=== PATIENT | male | born 1970 | race Caucasian/White ===

== ENCOUNTER 2022-01-16 08:28 | Outpatient (CLI) | payer BC, SELFPAY ==
[2022-01-16 09:14] LABS: Cholesterol 196 mg/dL (0-200); HDL Direct 38 mg/dL (40-60); LDL Cholesterol Calculated 150 mg/dL (<130); Triglycerides 41 mg/dL (0-150)
== END 2022-01-16 08:29 | disposition home or self-care (01) ==
LOC: CHSLAB 08:31
PROVIDERS: PCP Nurse Practitioner Family; Visit Provider Nurse Practitioner Family
DX: Z00.00 Encounter for general adult medical examination without abnormal findings (principal)
CPT/HCPCS: 36415; 80061

== ENCOUNTER 2025-05-07 09:58 | Outpatient (CLI) | payer BC, SELFPAY ==
--- NOTE | ~2025-05-07 | XR_ITS ---
EXAMINATION: XR foot LT 2V, 05/07/2025 10:20 CDT HISTORY: M79.662 - Pain in left lower leg COMPARISON: No comparisons available. Findings: No acute fracture or malalignment. No significant degenerative changes. Soft tissues unremarkable. Impression: No acute fracture or malalignment. Reviewed, dictated and finalized at location P. Impression: No acute fracture or malalignment.
--- NOTE | ~2025-05-07 | XR_ITS ---
EXAMINATION: XR heel LT min 2V, 05/07/2025 10:20 CDT HISTORY: M79.662 - Pain in left lower leg COMPARISON: No comparisons available. Findings: No acute fracture or malalignment. No significant degenerative changes. Soft tissues unremarkable. Impression: No acute fracture or malalignment. Reviewed, dictated and finalized at location P. Impression: No acute fracture or malalignment.
[2025-05-07 10:14] LABS: Hematocrit 49.2 % (40.0-54.0); Hemoglobin 16.2 g/dL (14.0-18.0); Immature Granulocyte Percent A 0.2 % (0.0-0.0); Lymphocytes Absolute Auto 1.30 K/mm3 (1.10-4.50); Mean Corpuscular HGB Conc 32.9 g/dL (32-36); Mean Corpuscular Hemoglobin 33.2 pg (27.0-31.0); Mean Corpuscular Volume 100.8 fL (78.0-102.0); Nucleated Red Blood Cells Absolute Auto 0.00 K/mm3 (0.00-0.00); Nucleated Red Blood Cells Perc 0.0 % (0-0.0); Platelet Count Result 266 K/mm3 (150-420); Red Blood Count 4.88 M/mm3 (4.70-6.10); White Blood Count 9.1 K/mm3 (4.8-10.8)
--- NOTE | 2025-05-07 10:14 | ECG_ITS ---
Test Date: 2025-05-07 11:10:09 Measurements Intervals [place] Rate: 70 P: 54 [place]: 132 QRS: 79 QRSD: 98 T: -18 QT: 380 QTc: 410 Interpretive Statements SINUS RHYTHM VOLTAGE CRITERIA FOR LVH MINIMAL Q WAVES- INF/LAT LEADS ST-T WAVE ABNORMALITY IN INFERIOR LEADS- CONSIDER ISCHEMIA ABNORMAL ECG No previous ECG available for comparison Electronically Signed On 05-07-2025 11:15:36 CDT by Santana Antonio D.O.
[2025-05-07 10:26] LABS: Hemoglobin A1C 5.5 % (<5.7)
[2025-05-07 10:31] LABS: INR 1.0; Prothrombin Time 10.6 Seconds (9.50-12.1)
[2025-05-07 10:32] LABS: Alanine Aminotransferase 13 U/L (6-50); Albumin Level 4.8 g/dL (3.5-5.1); Alkaline Phosphatase 55 U/L (38-126); Anion Gap 9 mmol/L (4-12); Aspartate Amino Transferase 20 U/L (17-59); Bilirubin,Total 0.7 mg/dL (0.2-1.3); Blood Urea Nitrogen 18 mg/dL (9-20); Calcium 9.6 mg/dL (8.4-10.2); Carbon Dioxide 28 mmol/L (22-30); Chloride 105 mmol/L (98-107); Cholesterol 223 mg/dL (0-200); Estimated Glomerular Filt Rate > 60; Glucose 102 mg/dL (65-110); HDL Direct 34 mg/dL; Osmolality Calculated 295 mOsm/kg (285-295); Potassium 4.7 mmol/L (3.4-5.0); Sodium 142 mmol/L (137-145); Total Protein 9.5 g/dL (6.3-8.2); Triglycerides 155 mg/dL (<150)
[2025-05-07 10:43] LABS: Troponin I < 0.012 ng/mL (0.000-0.034)
--- OUTSIDE RECORDS SUMMARY | 2025-05-07 11:05 | XMS_ITS | Clinical Summary ---
Author Organization [facility] Address [address] [place] [address] Care Team Providers Care Passenger Booking Clerk Name Role Phone Unavailable Primary Care Provider Unavailabl e Source Comments [facility],non-owned Affiliates and Associated Physician Practices is amultiple site organization consisting of ambulatory clinics and hospital sitesin [place], [place], [place] and [place]. This disclosure is being madepursuant to the Care Everywhere program and may not contain all information available regarding this patient. Last updated 18.[employer] [facility] Allergies No known active allergies Medications * Be aware that medications may not be up to date on this document. Alwaysverify current medications with the patient. predniSONE (DELTASONE) 20 MG tablet 3 tabs PO QD x 3 days, 2 tabs PO QD x 2 days, 1 tab PO QD x 2 days 15 tablet 12/05/2018 Active Active Problems No known active problems Social History Tobacco Use Types Packs/Day Years Used Date Smoking Tobacco: Never Assessed Sex and Gender Information Value Date Recorded Sex Assigned at Not on file Legal Sex Male 11:17 AM CDT Gender Identity Not on file Sexual Orientation Not on file Last Filed Vital Signs Vital Sign Reading Time Taken Comments Blood Pressure 114/72 12/05/2018 5:49 PM CDT Pulse 94 12/05/2018 5:49 PM CDT Temperature 37.2 C (98.9 F) 12/05/2018 5:49 PM CDT Respiratory Rate 18 12/05/2018 5:49 PM CDT Oxygen Saturation 97% 12/05/2018 5:49 PM CDT Inhaled Oxygen Concentration - - Weight 77.1 kg (170 lb) 12/05/2018 5:49 PM CDT Height 179.1 cm (5' 10.5) 12/05/2018 5:49 PM CD T Body Mass Index 24.05 12/05/2018 5:49 PM CDT Plan of Treatment Health Maintenance Due Date Last Done Comments COLOGUARD (AGES 45-75) - COL ON CA SCREENING 1970 COLON MONITORING 1970 COLONOSCOPY - COLON CA SCREENING 1968 CT COLONOGRAPHY - COLON CA SCREENING 1970 Colorectal Cancer Screening 1970 FIT - COLON CA SCREENING 1968 FLEX SIG - COLON CA SCREENING 1970 LIPID TESTING 1970 HIV SCREENING 02/16/1983 HEPATITIS C SCREENING 02/12/1986 DTAP/TDAP/TD VACCINES (1 - Tdap) 02/16/1987 HEPATITIS B VACCINE (1 of 3 - 19+ 3-dose series) 02/16/1987 PNEUMOCOCCAL VACCINE 50+ (1 of 1 - PCV) 02/16/2018 ZOSTER VACCINE (1 of 2) 02/16/2018 DEPRESSION SCREENING 08/02/2024 COVID-19 VACCINE (1 - 2023-2 5 season) 2025 INFLUENZA VACCINE (#1) 2025 HIB VACCINE Aged Out No longer eligi ble based on patient's age to complete this topic HPV VACCINE Aged Out No longer eligi ble based on patient's age to complete this topic MENINGOCOCCAL (Group B) VACC INE SHARED DECISION-MAKING Aged Out No longer eligibl e based on patient's age to complete this topic MENINGOCOCCAL GROUPS A/C/Y/W VACCINE Aged Out No longer eligible b ased on patient's age to complete this topic Insurance [employer]
[2025-05-07 11:14] LABS: Thyroid Stimulating Hormone Reflex 0.856 uIU/mL (0.465-4.68)
== END 2025-05-07 09:59 | disposition home or self-care (01) ==
PROVIDERS: PCP Family Medicine; Visit Provider Nurse Practitioner Family
DX: Z00.00 Encounter for general adult medical examination without abnormal findings (principal); R00.9 Unspecified abnormalities of heart beat; M79.662 Pain in left lower leg; R94.31 Abnormal electrocardiogram [ECG] [EKG]
CPT/HCPCS: 36415; 73620; 73650; 80053; 80061; 83036; 84443; 84484; 85025; 85610; 93005

== ENCOUNTER 2025-05-11 13:09 | Outpatient (CLI) | payer BC, SELFPAY ==
--- NOTE | ~2025-05-11 | US_ITS ---
EXAMINATION: US arterial ankle brachial ind DATE: 05/11/2025 13:37 INDICATION: Left lower limb pain TECHNIQUE: Segmental pressures and plethysmographic and Doppler waveforms of the brachial and lower extremity arteries were obtained. COMPARISON: None. FINDINGS: Right and left brachial artery pressures of 141 mm Hg and 134 mm Hg, respectively, are concordant (normal difference <= 30 mmHg). The right ankle-brachial index (ROBBY) is 1.12 (normal >= 0.9-1.0). The right great toe-brachial index (TBI) is 0.64 (normal >= 0.65). Arterial Doppler waveforms are biphasic with brisk systolic upstrokes at both right posterior tibial and dorsalis pedis arteries. The left ROBBY is 1.15. The left TBI is 0.50. Arterial Doppler waveforms are biphasic with brisk systolic upstrokes at both left posterior tibial and dorsalis pedis arteries. IMPRESSION: 1. Mild arterial occlusive disease to bilateral lower limbs with normal bilateral ABIs but mildly decreased left and minimally decreased right TBIs Reviewed, dictated and finalized at location A. IMPRESSION: 1. Mild arterial occlusive disease to bilateral lower limbs with normal bilater al ABIs but mildly decreased left and minimally decreased right TBIs
== END 2025-05-11 13:10 | disposition home or self-care (01) ==
LOC: CHSIMG 13:10
PROVIDERS: PCP Family Medicine; Visit Provider Nurse Practitioner Family
DX: M79.662 Pain in left lower leg (principal); F17.200 Nicotine dependence, unspecified, uncomplicated; R00.9 Unspecified abnormalities of heart beat; I73.9 Peripheral vascular disease, unspecified
CPT/HCPCS: 93922

== ENCOUNTER 2025-06-05 09:31 | Outpatient (CLI) | payer BC, SELFPAY ==
--- NOTE | 2025-06-05 10:02 | EST_ITS ---
Patient Info Name: Bhaskar Kaminski Age: 55 years : 1970 Gender: Male Ht: 70 in Wt: 170 lbs BSA: 1.96 m2 HR: 81 bpm BP: 135 / 88 mmHg Heart Rhythm: Indeterminant Technical Quality: Good Exam Date: 06/05/2025 10:12 AM Patient Status: O Admit Date: 06/05/2025 Exam Type: CA stress echo Treadmill exercise stress echocardiogram is performed. Staff Referring Physician: Santana Antonio DO Farmworker Grain: Gregory Haro III Attending Provider: Santana Antonio DO Exercise Physician: Santana Antonio DO Summary 1. 1. Negative Audie exercise stress test for ischemic ST changes by ECG criteria. 2. 2. Reduced functional capacity, achieving 6.5 METs of workload. 3. 3. Baseline frequent PVC's. 4. 4. Hypertensive response to exercise. 5. 5. Appropriate HR response to exercise. 6. 6. Appropriate HR recovery at 1 minute post exercise. 7. 7. Negative stress echocardiogram for ischemia by wall motion analysis. 8. 8. Patient informed of the above results. Stress Echo Findings Left Ventricle Appropriate increase in LV endocardial thickening with systole. Appropriate augmentation of contractility with systole. EF improved to 60-65% with exercise. No wall motion abnormalities. Left Ventricle Global mild systolic dysfunction with EF 45%-50%. No wall motion abnormalities. Protocol: Audie Stress ECG Details Stage: REST Duration (min): 1 min : 9 sec Speed (mph): 0.0 Grade (%): 0 HR (bpm): 77 SBP (mmHg): 135 DBP (mmHg): 88 METS: --- Stage: REST Duration (min): 1 min : 29 sec Speed (mph): 0.0 Grade (%): 0 HR (bpm): 74 SBP (mmHg): 135 DBP (mmHg): 88 METS: --- Stage: REST Duration (min): 10 min : 36 sec Speed (mph): 0.0 Grade (%): 0 HR (bpm): 84 SBP (mmHg): 135 DBP (mmHg): 88 METS: --- Stage: STAGE 1 Duration (min): 1 min : 0 sec Speed (mph): 1.7 Grade (%): 10 HR (bpm): 115 SBP (mmHg): 135 DBP (mmHg): 88 METS: --- Stage: STAGE 1 Duration (min): 2 min : 0 sec Speed (mph): 1.7 Grade (%): 10 HR (bpm): 126 SBP (mmHg): 135 DBP (mmHg): 88 METS: --- Stage: STAGE 1 Duration (min): 3 min : 0 sec Speed (mph): 1.7 Grade (%): 10 HR (bpm): 132 SBP (mmHg): 135 DBP (mmHg): 88 METS: --- Stage: STAGE 2 Duration (min): 1 min : 0 sec Speed (mph): 2.5 Grade (%): 12 HR (bpm): 149 SBP (mmHg): 135 DBP (mmHg): 88 METS: --- Stage: STAGE 2 Duration (min): 1 min : 4 sec Speed (mph): 0.0 Grade (%): 0 HR (bpm): 150 SBP (mmHg): 135 DBP (mmHg): 88 METS: --- Stage: RECOVERY Duration (min): 0 min : 55 sec Speed (mph): 0.0 Grade (%): 0 HR (bpm): 117 SBP (mmHg): 223 DBP (mmHg): 74 METS: --- Stage: RECOVERY Duration (min): 1 min : 55 sec Speed (mph): 0.0 Grade (%): 0 HR (bpm): 103 SBP (mmHg): 223 DBP (mmHg): 74 METS: --- Stage: RECOVERY Duration (min): 2 min : 55 sec Speed (mph): 0.0 Grade (%): 0 HR (bpm): 94 SBP (mmHg): 162 DBP (mmHg): 82 METS: --- Stage: RECOVERY Duration (min): 3 min : 34 sec Speed (mph): 0.0 Grade (%): 0 HR (bpm): 95 SBP (mmHg): 162 DBP (mmHg): 82 METS: --- Rest HR: 84 bpm Peak HR: 151 bpm Rest Sys BP: 135 mmHg Peak Sys BP: 223 mmHg Max Pred HR: 163 bpm % Max Pred HR: 93 % Target HR: 139 bpm Max RPP: 33,673 bpm*mmHg Fair Score: -10 BP Response: Patient exhibited a hypertensive response with stress Termination Reason: Reached target heart rate or workload Cardiac Symptoms: Shortness of breath, Leg pain Max ST Seg Deviation: 3 mm Total Time: 4 min : 4 sec Rest Nguyen BP: 88 mmHg Peak Nguyen BP: 74 mmHg Angina Score: None Total METS: 6.5 Resting ECG Sinus rhythm with frequent PVC's. Stress ECG No ST changes. Arrhythmias None. Report Signatures Stress ECG Echo
--- OUTSIDE RECORDS SUMMARY | 2025-06-05 10:38 | XMS_ITS | Patient Health Record ---
Author Organization [facility] Address [address] [place], [place] [id number] Care Team Providers Care Executive Sous Chef Name Role Phone YESENIA LING Unavailable [phone] Faraz Landon Unavailable Unavailable Reason For Referral No Information Medications Medication SIG (Take, Route, Frequency, Duration) Notes Start Date End Date Status Nabumetone 500 MG Oral Tablet ORAL nabumetone 500 MG Oral TabletOriginal Medicationnabumetone 500 MG Oral Tablet *Reorder from [employer] for eRx and Interaction Alerts* 08/18/2013 Active Social History Social History Additional Details Category Social Info Options Details Migrated Social History Migrated Social History History of tobacco use : Current every day smoker , Smoking Status : Current every day smoker , Alcohol intake : Plan Of Treatment No Information Insurance Providers Payer Name Payer Address Payer Phone Subscriber Number Group Number Insured Name Patient Relationship to Insured Coverage Start Date Coverage End Date [facility] [address] [address] [place] [address] [id number] MARIJA YANG Self - patient is the insured
--- OUTSIDE RECORDS SUMMARY | 2025-06-05 10:38 | XMS_ITS | Clinical Summary ---
Author Organization [facility] Address [address] [place] [address] Care Team Providers Care Bone Plant Supervisor Name Role Phone Unavailable Primary Care Provider Unavailabl e Source Comments [facility],non-owned Affiliates and Associated Physician Practices is amultiple site organization consisting of ambulatory clinics and hospital sitesin [place], [place], [place] and [place]. This disclosure is being madepursuant to the Care Everywhere program and may not contain all information available regarding this patient. Last updated 18.[employer] [facility] Allergies No known active allergies Medications * [...]
== END 2025-06-05 09:32 | disposition home or self-care (01) ==
LOC: ANHCARD 09:32
PROVIDERS: PCP Family Medicine; Visit Provider Internal Medicine Cardiovascular Disease
DX: R06.09 Other forms of dyspnea (principal)
CPT/HCPCS: 93351